=== PATIENT | female | born 1995 | race Two or more races ===

== ENCOUNTER 2022-12-29 20:22 | Emergency (ER) | payer MEDICAID, OTHER ==
[~2022-12-29] VITALS: Ht 160 cm; Wt 65.8 kg
[2022-12-30] MEDS ORDERED: ZOFR4T PO (00:15)
[2022-12-30] MEDS ORDERED: IBUP1TAB5 PO (00:15)
[2022-12-30] MEDS ORDERED: MECLIZINE HCL 25 MG TAB PO ONE (00:15)
[2022-12-30] MEDS ORDERED: ONDANSETRON ODT 4 MG TAB PO ONE (00:15)
[2022-12-30] MEDS ORDERED: HYDROcodone-ACET 5/325MG TAB PO ONE (00:15)
[2022-12-30] MEDS ORDERED: MECL25CH85 PO (00:15)
[2022-12-30 00:46] VITALS: BP 117/71; PULSE 91; RESP 18; TEMP 98.2; O2SAT 98
== END 2022-12-30 00:47 | disposition home or self-care (01) ==
LOC: ER 20:29
DX: S06.0X0A Concussion without loss of consciousness, initial encounter (principal); Y04.2XXA Assault by strike against or bumped into by another person, initial encounter; Y93.89 Activity, other specified; Y92.89 Other specified places as the place of occurrence of the external cause; Y99.8 Other external cause status
CPT/HCPCS: 70450; 99284; J8597; Q0162